=== PATIENT | female | born 1990 | race Hispanic/Latino ===

== ENCOUNTER 2019-08-15 00:27 | Inpatient (IN) | payer MEDICAID ==
[2019-08-15] MEDS ORDERED: FAMOTIDINE 20 MG/2 ML INJ IV ONE ×2 (01:17→01:26)
[2019-08-15] MEDS ORDERED: METOCLOPRAMIDE 10 MG/2 ML INJ IV ONE (01:17)
[2019-08-15] MEDS ORDERED: BICITRA ORAL LIQD 30ML PO ONE (01:17)
[2019-08-15] MEDS ORDERED: METOCLOPRAMIDE 10 MG/2 ML INJ ONE (01:25)
[2019-08-15] MEDS ORDERED: BICITRA ORAL LIQD 30ML ONE (01:25)
[2019-08-15] MEDS ORDERED: ceFAZolin/Water 2 GM/20 ML 2 GM/20 ML SYRINGE IV ONE (01:26)
[2019-08-15 01:53] LABS: Basophils # (Auto) 0.1 K/mm3 (0.0-0.1); Basophils % (Auto) 0.6 % (0.0-1.8); Eosinophils # (Auto) 0.1 K/mm3 (0.0-0.4); Eosinophils % (Auto) 0.6 % (0.0-4.3); Hematocrit 38.6 % (30.3-42.9); Hemoglobin 13.1 gm/dl (10.1-14.3); Lymphocytes # (Auto) 2.7 K/mm3 (1.2-5.4); Lymphocytes % (Auto) 17.3 % (13.4-35.0); Mean Corpuscular HGB Conc 34 % (30-34); Mean Corpuscular Volume 95 fl (79-97); Monocytes # (Auto) 1.3 K/mm3 (0.0-0.8); Monocytes % (Auto) 8.5 % (0.0-7.3); Red Blood Count 4.07 M/mm3 (3.65-5.03); Red Cell Distribution Width 13.4 % (13.2-15.2)
[2019-08-15] MEDS ORDERED: LACTATED RINGERS 1,000 ML IV SCH (02:00)
[2019-08-15] MEDS ORDERED: OXYTOCIN 20 UNIT/1000ML DRIP 20 UNITS/1,000 ML BAG IV SCH ×2 (02:00→04:00)
[2019-08-15] MEDS ORDERED: ceFAZolin/Water 2 GM/20 ML 2 GM/20 ML SYRINGE IV NR (02:00)
--- NOTE | 2019-08-15 02:03 | Anesthesia Day of Surgery ---
Anesthesia Day of Surgery - Day of Surgery Patient Examined: Yes Patient H&P Reviewed: Yes Patient is NPO: Yes
--- NOTE | 2019-08-15 02:03 | Anesthesia Consultation ---
Anesthesia Consult and Med Hx Date of service: 08/15/19 - Airway Anesthetic Teeth Evaluation: Good ROM Head & Neck: Adequate Mental/Hyoid Distance: Adequate Mallampati Class: Class II Intubation Access Assessment: Probably Good - Pulmonary Exam CTA: Yes - Cardiac Exam Cardiac Exam: RRR - Pre-Operative Health Status ASA Pre-Surgery Classification: ASA2 Proposed Anesthetic Plan: Epidural - Pulmonary Hx Smoking: Yes Hx Asthma: No COPD: No Hx Pneumonia: No - Cardiovascular System Hx Hypertension: No - Central Nervous System Hx Seizures: No Hx Psychiatric Problems: No - Endocrine Hx Renal Disease: No Hx End Stage Renal Disease: No Hx Hypothyroidism: No Hx Hyperthyroidism: No - Hematic Hx Anemia: No Hx Sickle Cell Disease: No - Other Systems Hx Alcohol Use: No
--- NOTE | 2019-08-15 02:04 | History and Physical Report ---
History of Present Illness Date of examination: 08/15/19 Date of admission: 08/15/19 00:27 Chief complaint: SROM, hx of previous csec for breech History of present illness: This is a 28 yo at 39 weeks here for repeat . CADE 08/22/19. SHe is a hx of smoker. She also has placenta lakes with GBS in urine. Patient reports while going to bed she had leaking with grossly ruptured Past History Past Medical History: no pertinent history Past Surgical History: section (for breech ), other (breast augmetnation) Family/Genetic History: none Social history: , smoking. denies: alcohol abuse, prescription drug abuse - Obstetrical History Expected Date of Delivery: 08/22/19 Actual Gestation: 39 Week(s) 0 Day(s) : 2 Para: 1 Hx # Term Pregnancies: 1 Number of Pregnancies: 0 Spontaneous Abortions: 0 Induced : 0 Number of Living Children: 1 Medications and Allergies Allergies Allergy/AdvReac Type Severity Reaction Status Date / Time No Known Allergies Allergy Verified 08/15/19 01:22 Active Meds: Active Medications Oxytocin/Sodium Chloride (Pitocin/Ns 20 Unit/1000ml Drip) 20 units in 1,000 mls @ 0 mls/hr IV TITR BENJY Lactated Ringer's (Lactated Ringers) 1,000 mls @ 2,250 mls/hr IV PREOP BENJY Stop: 08/16/19 02:27 Cefazolin Sodium (Ancef/Sterile Water 2 Gm/20 Ml) 2 gm in 20 mls @ 80 mls/hr IV PREOP NR; Protocol Stop: 08/15/19 02:14 Last Admin: 08/15/19 01:48 Dose: 80 mls/hr Documented by: Review of Systems All systems: negative Genitourinary: leakage of fluid - Vital Signs Vital signs: Vital Signs Pulse BP 88 115/63 08/15/19 01:00 08/15/19 01:00 Temp Pulse Resp BP Pulse Ox 88 115/63 08/15/19 01:00 08/15/19 01:00 - Physical Exam Breasts: Positive: normal Cardiovascular: Regular rate, Normal S1 Lungs: Positive: Clear to auscultation, Normal air movement Abdomen: Positive: normal appearance, soft, normal bowel sounds. Negative: distention, tenderness, guarding Genitourinary (Female): Positive: normal external genitalia, normal perenium Vulva: both: normal Vagina: Positive: normal moisture Uterus: Positive: normal size Anus/Rectum: Positive: normal perianal skin Deep Tendon Reflex Grade: Normal +2 - Obstetrical FHR: category 1 Cervical Dilatation: 1 Uterine Contraction Pattern: Irregular Uterine Tone Measurement Phase: Resting Results Result Diagrams: 08/15/19 01:40 Abnormal lab results 08/15/19 Range/Units 01:40 WBC 15.7 H (4.5-11.0) K/mm3 [place] % (Auto) 8.5 H (0.0-7.3) % [place] # 1.3 H (0.0-0.8) K/mm3 Seg Neutrophils % 73.0 H (40.0-70.0) % Seg Neutrophils # 11.5 H (1.8-7.7) K/mm3 All other labs normal. Assessment and Plan A/P IUP 39 weeks GBS + Previous Desires repeat discussed r/b/a which include bleeding infection damage to pelvic and non pelvic organs risk of and hysterectomy proceed with repeat csec all questions answered
[2019-08-15] MEDS ORDERED: WATER FOR IRRIG STERILE 1,500 ML BOTTLE IR ONE (02:20)
[2019-08-15] MEDS ORDERED: SODIUM CHLORIDE 0.9% IRR 1,500 ML BOTTLE IR ONE (02:20)
[2019-08-15] MEDS ORDERED: ceFAZolin/STERILE WATER 2 GM/20 ML SYRINGE IV ONE (02:30)
[2019-08-15 02:49] LABS: Platelet Count 195 K/mm3 (140-440)
[2019-08-15] MEDS ORDERED: ONDANSETRON 4 MG/2 ML INJ ONE (02:56)
[2019-08-15] MEDS ORDERED: OXYTOCIN 10 UNIT/1 ML INJ ONE (02:56)
[2019-08-15] MEDS ORDERED: KETOROLAC 30 MG/1 ML INJ ONE (02:56)
[2019-08-15] MEDS ORDERED: DEXMEDETOMIDINE 200 MCG/2 ML VIAL IV ONE (02:56)
[2019-08-15] MEDS ORDERED: BUPIVACAINE/PF (0.5%) 5 MG/1 ML 30 ML VIAL INFILTRATI ONE (02:56)
[2019-08-15] MEDS ORDERED: PHENYLEPHRINE/NS 1,000 MCG/10 ML SYRINGE (OR USE) IV ONE (02:59)
--- NOTE | 2019-08-15 03:19 | Procedure Note ---
OB Delivery Note - Delivery Date of Delivery: 08/15/19 Surgeon: ALISON VELOZ Estimated blood loss: 300cc - Section Preop diagnosis: repeat Postop diagnosis: same section procedure: section Disposition: PACU Complications: none Narrative: see op note - Infant A at 1 minute: 8 at 5 minutes: 9 Gender: Male (6 pounds 8 oz)
[2019-08-15] MEDS ORDERED: MORPHINE 4 MG/1 ML INJ IV PRN (03:22)
[2019-08-15] MEDS ORDERED: MAGNESIUM HYDROXIDE (MOM) ORAL LIQD UDC PO PRN (03:22)
[2019-08-15] MEDS ORDERED: PROMETHAZINE 25 MG RECT SUPP PR PRN (03:22)
[2019-08-15] MEDS ORDERED: SIMETHICONE 80 MG CHEW TAB PO PRN (03:22)
[2019-08-15] MEDS ORDERED: MORPHINE 2 MG/1 ML INJ IV PRN (03:22)
[2019-08-15] MEDS ORDERED: LANOLIN/ZINC/DIMETHICONE (LANSINOH) 7 GM TP PRN (03:22)
[2019-08-15] MEDS ORDERED: ONDANSETRON 4 MG/2 ML INJ IV PRN (03:22)
[2019-08-15] MEDS ORDERED: HYDROcodone/ACETAMINOPHEN 5-325 MG TAB PO PRN (03:22)
[2019-08-15] MEDS ORDERED: SENNOSIDES 8.6 MG TAB PO PRN (03:22)
[2019-08-15] MEDS ORDERED: KETOROLAC 30 MG/1 ML INJ IV PRN ×2 (03:22)
[2019-08-15] MEDS ORDERED: ACETAMINOPHEN 325 MG TAB PO PRN (03:22)
[2019-08-15] MEDS ORDERED: NALOXONE 0.4 MG/1 ML INJ IV PRN (03:22)
[2019-08-15] MEDS ORDERED: WITCH HAZEL/ GLYCERIN PAD TP PRN (03:22)
--- NOTE | 2019-08-15 03:22 | Operative Report ---
Operative Report Operative Report: DATE OF OPERATION: 08/15/19 PREOPERATIVE DIAGNOSES: 1. Prior section. 2. Declines vaginal after . 3. A 39 weeks gestation. POSTOPERATIVE DIAGNOSES: 1. Prior section. 2. Declines vaginal after . 3. A 39 weeks gestation. OPERATION PERFORMED: Repeat low transverse . SURGEON: Racquel Baez MD ANESTHESIA: Spinal. ESTIMATED BLOOD LOSS: 300 mL. FINDINGS: A viable male weighing 2961 grams with Apgars of 8 and 9. COMPLICATIONS: None. DISPOSITION: Stable. DESCRIPTION OF OPERATION: After informed consent was obtained, the patient was brought back to the operative suite where adequate spinal anesthesia was ob tained. The patient was then placed in the dorsal supine position and prepped and draped in the sterile fashion. A repeat Pfannenstiel skin incision was made with a blade and carried down through the subcutaneous tissues to the fascia, which was extended in the transverse fascia with Mi scissors. The fascial incision was then dissected off the rectus muscles both bluntly and sharply. The rectus muscle was in the midline. The peritoneum was entered bluntly. The peritoneal incision was then extended both superiorly and inferiorly with good visualization of the underlying bowel and bladder. The bladder blade was placed, and the vesicouterine fascia was incised to create a bladder flap in a low transverse position. This was developed digitally. A low transverse uterine incision was made with the blade and carried down through the layers of the uterus until membranes bulged through the incision. The uterine incision was then extended digitally. Hand was placed inside the pelvis, and the head was brought up out of the pelvis and delivered atraumatically with gentle fundal pressure. Prior to the head being delivered, actually through the skin, the sound of the baby starting to cry was noted. After the head was delivered, the mouth and nares were aggressively bulb suctioned. Remainder of the infant was delivered, and the was passed to the awaiting nursing staff for additional care. Cord was doubly clamped and cut and cord blood was obtained. The placenta was then manually extracted, and the uterus was exteriorized. The uterus was cleaned of remaining clot. The uterine incision was readily identified and closed in two layers, first one with running locking followed by second imbricating layer of 0 Vicryl. The vesicouterine fascia was then reapproximated with 2-0 Vicryl. The adnexa were within normal limits. The uterus was placed back inside the pelvis. Copious irrigation and inspection of the incision was satisfactory. The fascia was closed with 0 PDS from one angle to the next. Subcutaneous tissues were copiously irrigated, and final bleeders were cauterized. The incision was then reapproximated with dereje needle in a standard fashion
[2019-08-15] MEDS ORDERED: NalbUPHINE 10 MG/1 ML INJ IV PRN (03:31)
--- NOTE | 2019-08-15 03:31 | Post Anesthesia Evaluation ---
- Post Anesthesia Evaluation Patient Participated: Yes Airway Patent: Yes Stable Respiratory Function: Yes Nausea/Vomiting: No Temp > 96.8F: Yes Pain Manageable: Yes Adequeate Hydration: Yes Anesthesia Complications: No Block Receding Appropriately: Yes
[2019-08-15] MEDS ORDERED: D5W/LACTATED RINGERS 1,000 ML IV SCH (04:00)
[2019-08-15] MEDS: KETOROLAC 30 MG/1 ML INJ IV SCH ×3 (07:24→23:10)
[2019-08-15] MEDS: FERROUS SULFATE 325 MG TAB PO SCH (10:33)
[2019-08-15] MEDS: ACETAMINOPHEN 325 MG TAB PO SCH ×3 (11:37→23:08)
[2019-08-15 19:24] LABS: Hematocrit 35.7 % (30.3-42.9)
[2019-08-15] MEDS: oxyCODONE /ACETAMINOPHEN 5-325MG TAB PO PRN (20:15)
[2019-08-16] MEDS ORDERED: MEASLES, MUMPS & RUBELLA 12,500 UNIT/0.5 ML VACCINE SUB-Q ONE (03:23)
[2019-08-16] MEDS: oxyCODONE /ACETAMINOPHEN 5-325MG TAB PO PRN ×3 (03:56→18:42)
[2019-08-16] MEDS: ACETAMINOPHEN 325 MG TAB PO SCH ×4 (05:37→18:53)
[2019-08-16] MEDS: IBUPROFEN 800 MG TAB PO PRN ×2 (05:38→15:35)
[2019-08-16] MEDS ORDERED: TETANUS,DIPH,PERTUSS(ACELL) VACCINE 0.5 ML SYRINGE IM ONE (06:00)
--- NOTE | 2019-08-16 08:48 | Progress Note ---
Assessment and Plan - Patient Problems (1) delivery delivered Current Visit: Yes Status: Acute Plan to address problem: routine postop care Subjective - Subjective Date of service: 08/16/19 Interval history: Patient has been ambulating and voiding. Tolerated a soft diet without difficulty Patient reports: appetite normal, voiding normally, pain well controlled [place]: doing well Objective - Vital Signs Latest vital signs: Vital Signs Temp Pulse Resp BP Pulse Ox 08/16/19 00:48 98.0 F 87 18 122/80 95 08/15/19 20:20 97.6 F 99 H 18 130/83 97 08/15/19 16:33 98.0 F 90 20 109/68 94 08/15/19 11:56 98.1 F 89 20 105/46 97 Intake and Output 08/15/19 08/16/19 08/16/19 22:59 06:59 14:59 Intake Total 240 480 Output Total 500 Balance -260 480 Intake: Oral 240 480 Output: Urine 500 Void 500 Other: Total, Intake Amount 240 240 Total, Output Amount 300 Voiding Method Toilet # Voids Indwelling Catheter 0 Void 1 1 - Exam Abdomen: Present: normal appearance, soft Incision: Present: dressed
[2019-08-16] MEDS: FERROUS SULFATE 325 MG TAB PO SCH (09:37)
[2019-08-17] MEDS: IBUPROFEN 800 MG TAB PO PRN ×2 (00:04→07:37)
[2019-08-17] MEDS: oxyCODONE /ACETAMINOPHEN 5-325MG TAB PO PRN ×2 (04:31→10:08)
--- NOTE | 2019-08-17 08:33 | Progress Note ---
Assessment and Plan POD2 s/p repeat c/s VSS, labs stable Discharge to home today Subjective - Subjective Date of service: 08/17/19 Principal diagnosis: s/p repeat c/s Interval history: POD2 s/p repeat c/s Patient reports: appetite normal, voiding normally, pain well controlled, flatus, ambulating normally [place]: doing well, bottle feeding (pumped milk from bottle) Objective - Vital Signs Latest vital signs: Vital Signs Temp Pulse Resp BP BP Pulse Ox 08/17/19 04:31 18 08/17/19 00:04 18 08/16/19 23:15 98.6 F 92 H 18 118/71 98 08/16/19 16:45 97.9 F 95 H 18 112/67 08/16/19 08:54 97.8 F 91 H 18 127/75 Intake and Output 08/16/19 08/17/19 08/17/19 23:59 07:59 15:59 Intake Total 480 600 Balance 480 600 Intake: Oral 480 Intake, Free Water 600 Other: Total, Intake Amount 480 Voiding Method Toilet # Voids Void 1 - Exam Lungs: Present: Normal air movement Abdomen: Present: soft Uterus: Present: firm, fundal height below umbilicus Extremities: Present: normal Incision: Present: normal, dry, intact
--- NOTE | 2019-08-17 08:35 | Discharge Summary ---
Providers - Providers Date of Admission: 08/15/19 00:27 Date of discharge: 08/17/19 Attending physician: LAISON VELOZ MD Primary care physician: ALISON VELOZ MD Hospitalization Reason for admission: section Delivery: Procedure: repeat low transverse Incision: normal, dry, intact Other procedures: none complications: none Discharge diagnosis: IUP at term delivered [place] baby: male Hospital course: Pt presented for repeat c/s. course uncomplicated. Condition at discharge: Good Disposition: DC-01 TO HOME OR SELFCARE Plan - Discharge Medications Prescriptions: Ferrous Sulfate [Feosol 325 MG tab] 325 mg PO BID #30 tablet Ibuprofen [Motrin] 600 mg PO Q8H PRN #30 tablet PRN Reason: Pain oxyCODONE /ACETAMINOPHEN [Percocet 5/325] 1 tab PO Q6HR PRN #30 tablet PRN Reason: Pain - Provider Discharge Summary Activity: routine, no sex for 6 weeks, no heavy lifting 4 weeks, no strenuous exercise Diet: routine Instructions: routine Additional instructions: [] Smoking cessation referral if applicable(refer to patient education folder for contact #) [] Refer to [facility] Book[facility] Call your doctor immediately for: * Fever > 100.5 * Heavy vaginal bleeding ( >1 pad per hour) * Severe persistent headache * Shortness of breath * Reddened, hot, painful area to leg or breast * Drainage or odor from incision. * Keep incision clean and dry at all times and follow doctor's instructions regarding bathing/showering - Follow up plan Follow up: PB HAGER CNM [Advanced Practice Nurse] - 14 Days (Please call [facility] lifting supervisor to schedule appointment.)
[2019-08-17 08:56] VITALS: BP 104/77
[2019-08-17] MEDS: FERROUS SULFATE 325 MG TAB PO SCH (09:56)
== END 2019-08-17 14:30 | disposition home or self-care (01) | DRG 766 ==
LOC: APU 00:27 → OB 04:38
PROVIDERS: ADMIT Obstetrics & Gynecology; ATTEND Obstetrics & Gynecology
PROC: 10D00Z1 Extraction of Products of Conception, Low, Open Approach (ICD-10-PCS; principal; 2019-08-15)
DX: O34.211 Maternal care for low transverse scar from previous cesarean delivery (principal); Z3A.39 39 weeks gestation of pregnancy; Z37.0 Single live birth; O99.824 Streptococcus B carrier state complicating childbirth
CPT/HCPCS: 36415; 85014; 85018; 85025; 86850; 86900; 86901; 88305; 88307; G0378; J0690; J1885; J2270; J2370; J2405; J2590; J2765; J3490; J7121

== ENCOUNTER 2020-07-21 13:22 | Day surgery (SDC) | payer MEDICAID ==
--- NOTE | 2020-07-21 13:39 | Event Note ---
ED Screening Note Date of service: 07/21/20 Time: 13:37 ED Screening Note: 29-year-old female presents to the emergency room complaining of a boil between her legs x1 month. This initial assessment/diagnostic orders/clinical plan/treatment(s) is/are subject to change based on patients health status, clinical progression and re- assessment by fellow clinical providers in the ED. Further treatment and workup at subsequent clinical providers discretion. Patient/guardian urged not to elope from the ED as their condition may be serious if not clinically assessed and managed. Initial orders include:
[2020-07-21 14:42] LABS: Basophils % (Auto) 0.3 % (0.0-1.8); Eosinophils % (Auto) 0.1 % (0.0-4.3); Hematocrit 44.3 % (30.3-42.9); Hemoglobin 14.9 gm/dl (10.1-14.3); Lymphocytes # (Auto) 1.9 K/mm3 (1.2-5.4); Lymphocytes % (Auto) 14.9 % (13.4-35.0); Mean Corpuscular HGB Conc 34 % (30-34); Mean Corpuscular Volume 92 fl (79-97); Monocytes # (Auto) 1.3 K/mm3 (0.0-0.8); Monocytes % (Auto) 9.8 % (0.0-7.3); Platelet Count 206 K/mm3 (140-440); Red Cell Distribution Width 12.6 % (13.2-15.2)
[2020-07-21 14:54] LABS: Alanine Aminotransferase 11 units/L (7-56); Albumin 4.4 g/dL (3.9-5); Blood Urea Nitrogen 9 mg/dL (7-17); Calcium 9.8 mg/dL (8.4-10.2); Hemolysis Index 2
[2020-07-21 14:55] LABS: BUN/Creatinine Ratio 13
[2020-07-21] MEDS ORDERED: traMADol 50 MG TAB PO ONE (15:30)
--- NOTE | 2020-07-21 15:54 | Emergency Department Report ---
- General Chief complaint: Skin/Abscess/Foreign Body Stated complaint: ABCESS/INFECTION UNDER SKIN Time Seen by Provider: 07/21/20 15:14 Source: patient Mode of arrival: Ambulatory Limitations: No Limitations - History of Present Illness Initial comments: 29-year-old female presents to the emergency room complaining of left buttocks pain x1 month. She denies any falls or known injuries or any insect bite. She denies any past medical history. She has been using akgx-lhn-hmeynct medicine and also warm soaks with no relief. She denies fever nausea vomiting. Patient appears uncomfortable states she is unable to sit on her buttocks due to the pain MD complaint: abscess/boil -: month(s) Location: buttocks (Left) Quality: aching, sharp, constant Consistency: constant Improves with: none Worsens with: none Context: none Associated symptoms: denies other symptoms Treatments Prior to Arrival: none - Related Data Previous Rx's Medication Instructions Recorded Last Taken Type Ferrous Sulfate [Feosol 325 MG tab] 325 mg PO BID #30 tablet 08/15/19 Unknown Rx Ibuprofen [Motrin] 600 mg PO Q8H PRN #30 tablet 08/15/19 Unknown Rx oxyCODONE /ACETAMINOPHEN [Percocet 1 tab PO Q6HR PRN #30 tablet 08/15/19 Unknown Rx 5/325] oxyCODONE /ACETAMINOPHEN [Percocet 1 tab PO Q6HR PRN #30 tablet 08/17/19 Unknown Rx 5/325] Allergies Allergy/AdvReac Type Severity Reaction Status Date / Time No Known Allergies Allergy Verified 08/15/19 01:22 Abscess Boil HPI - HPI Chief Complaint: Skin/Abscess/Foreign Body Stated Complaint: ABCESS/INFECTION UNDER SKIN Time Seen by Provider: 07/21/20 15:14 Duration: >1 Week Location: Other (Left buttocks) History: Yes Pain, No Fever, No Purulent Drainage, No Numbness, No Foreign Body, No Previous History, No Insect Bite HPI: 29-year-old female presents to the emergency room and no past medical history she complains of left buttocks pain that worsens for over a month now not relieved with cnpz-[id number]-[id number] medications or warm compress Home Medications: Previous Rx's Medication Instructions Recorded Last Taken Type Ferrous Sulfate [Feosol 325 MG tab] 325 mg PO BID #30 tablet 08/15/19 Unknown Rx Ibuprofen [Motrin] 600 mg PO Q8H PRN #30 tablet 08/15/19 Unknown Rx oxyCODONE /ACETAMINOPHEN [Percocet 1 tab PO Q6HR PRN #30 tablet 08/15/19 Unknown Rx 5/325] oxyCODONE /ACETAMINOPHEN [Percocet 1 tab PO Q6HR PRN #30 tablet 08/17/19 Unknown Rx 5/325] Allergies/Adverse Reactions: Allergies Allergy/AdvReac Type Severity Reaction Status Date / Time No Known Allergies Allergy Verified 08/15/19 01:22 ED Review of Systems ROS: Stated complaint: ABCESS/INFECTION UNDER SKIN Other details as noted in HPI Comment: All other systems reviewed and negative Constitutional: no symptoms reported Eyes: as per HPI Respiratory: no symptoms reported Cardiovascular: as per HPI. denies: chest pain, palpitations, dyspnea on exertion Endocrine: no symptoms reported Gastrointestinal: denies: abdominal pain, constipation Genitourinary: as per HPI. denies: dysuria, hematuria, discharge Skin: other (Left buttock swollen tender erythemic) Neurological: denies: headache, numbness, paresthesias, confusion Psychiatric: denies: anxiety Hematological/Lymphatic: denies: easy bleeding ED Past Medical Hx - Past Medical History Previous Medical History?: Yes Hx Hypertension: No Hx Congestive Heart Failure: No Hx Diabetes: No Hx Deep Vein Thrombosis: No Hx Renal Disease: No Hx Sickle Cell Disease: No Hx Seizures: No Hx Asthma: No Hx COPD: No Hx HIV: No Additional medical history: childbirth x 2 - Surgical History Past Surgical History?: Yes Hx Breast Surgery: Yes (Breast Augmentation) Additional Surgical History: x 2 - Social History Smoking Status: Current Every Day Smoker Substance Use Type: Alcohol - Medications Home Medications: Home Medications Medication Instructions Recorded Confirmed Last Taken Type Ferrous Sulfate [Feosol 325 MG tab] 325 mg PO BID #30 tablet 08/15/19 Unknown Rx Ibuprofen [Motrin] 600 mg PO Q8H PRN #30 tablet 08/15/19 Unknown Rx oxyCODONE /ACETAMINOPHEN [Percocet 1 tab PO Q6HR PRN #30 tablet 08/15/19 Unknown Rx 5/325] oxyCODONE /ACETAMINOPHEN [Percocet 1 tab PO Q6HR PRN #30 tablet 08/17/19 Unknown Rx 5/325] ED Physical Exam - General Limitations: No Limitations General appearance: alert, in no apparent distress - Head Head exam: Present: atraumatic - Eye Eye exam: Present: normal appearance - ENT ENT exam: Present: normal exam, mucous membranes moist - Neck Neck exam: Present: normal inspection - Respiratory Respiratory exam: Present: normal lung sounds bilaterally - Cardiovascular Cardiovascular Exam: Present: regular rate - GI/Abdominal GI/Abdominal exam: Present: soft - Extremities Exam Extremities exam: Present: normal inspection - Back Exam Back exam: Present: normal inspection - Neurological Exam Neurological exam: Present: alert, oriented X3 - Skin Skin exam: Present: other - Expanded Skin Exam Expanded 1 - 19 x 7 cm fluctuant tender erythremic ED Course Vital Signs 07/21/20 13:38 Temperature 98.7 F Pulse Rate 138 H Respiratory 20 Rate Blood Pressure 151/91 O2 Sat by Pulse 98 Oximetry - Reevaluation(s) Reevaluation #1: 07/21/20 15:59 I discussed patient's condition with Dr. Sanford surgeon patient is to be admitted by hospitalist n.p.o. after midnight plan for 6 surgery at 10 AM Reevaluation #2: 07/21/20 16:01 Patient notified of plan of care to be a she is to be admitted to the hospital overnight she is aware not to eat or drink anything after midnight and she will have a surgical procedure to drain the abscess at 10 AM tomorrow patient agrees with the plan. She is in no acute distress Reevaluation #3: 07/21/20 16:[address] Garza notified of admission. He will see patient shortly Reevaluation #4: 07/21/20 17:02 Patient now states that she cannot stay in the hospital overnight due to childcare issues. I discussed with Dr. Sanford surgeon patient can be discharged home but to return to the ER tomorrow morning at 7 AM she is to remain n.p.o. after midnight ED Medical Decision Making - Lab Data Result diagrams: 07/21/20 13:41 07/21/20 13:41 Critical Care Time: No Critical care attestation.: If time is entered above; I have spent that time in minutes in the direct care of this critically ill patient, excluding procedure time. ED Disposition Clinical Impression: Left buttock abscess Disposition: DC- TO HOME OR SELFCARE Is pt being admited?: No Does the pt Need Aspirin: No Condition: Stable Instructions: Skin Abscess Additional Instructions: You are not to eat or drink anything after midnight. You are to return to the emergency room at [address] time [address] Sanford will be contacted and you will get further instructions about your surgical procedure Referrals: PRIMARY CARE, [Primary Care Provider] - 3-5 Days Time of Disposition: 17:13
[2020-07-21] MEDS ORDERED: PIPERACILLIN/TAZOBACTAM 3.375 3.375 GM/50 ML BAG IV ONE (16:03)
--- NOTE | 2020-07-22 12:09 | Anesthesia Consultation ---
Anesthesia Consult and Med Hx Date of service: 07/22/20 - Pre-Operative Health Status ASA Pre-Surgery Classification: ASA2, Emergency Proposed Anesthetic Plan: General - Pulmonary Hx Smoking: Yes (daily 0.5 pack/day ) Hx Asthma: No Hx Respiratory Symptoms: No SOB: No COPD: No Home Oxygen Therapy: No Hx Pneumonia: No Hx Sleep Apnea: No - Cardiovascular System Hx Hypertension: No Hx Coronary Artery Disease: No Hx Heart Attack/AMI: No Hx Angina: No Hx Percutaneous Transluminal Coronary Angioplasty (PTCA): No Hx Cardia Arrhythmia: No Hx Pacemaker: No Hx Internal Defibrillator: No Hx Valvular Heart Disease: No Hx Heart Murmur: No Hx Peripheral Vascular Disease: No - Central Nervous System Hx Neuromuscular Disorder: No Hx Seizures: No CVA: No Hx Back Pain: No Hx Psychiatric Problems: No - Gastrointestinal Hx Ulcer: No Hx Gastroesophageal Reflux Disease: No - Endocrine Hx Renal Disease: No Hx End Stage Renal Disease: No Hx Cirrhosis: No Hx Liver Disease: No Hx Insulin Dependent Diabetes: No Hx Non-Insulin Dependent Diabetes: No Hx Thyroid Disease: No Hx Hypothyroidism: No Hx Hyperthyroidism: No - Hematic Hx Anemia: No Hx Sickle Cell Disease: No - Other Systems Hx Alcohol Use: Yes (social drinker ) Hx Substance Use: No Hx Cancer: No Hx Obesity: No - Additional Comments Anesthesia Medical History Comments: no issues with previous anesthesia
--- NOTE | 2020-07-22 12:13 | Anesthesia Day of Surgery ---
Anesthesia Day of Surgery - Day of Surgery Patient Examined: Yes Patient H&P Reviewed: Yes Patient is NPO: Yes (NPO before midnight)
[2020-07-22] MEDS ORDERED: ONDANSETRON 4 MG/2 ML INJ IV PRN (13:20)
[2020-07-22] MEDS ORDERED: fentaNYL 100 MCG/2 ML INJ IV PRN (13:20)
--- NOTE | 2020-07-22 13:23 | Post Anesthesia Evaluation ---
- Post Anesthesia Evaluation Patient Participated: Yes Airway Patent: Yes Stable Respiratory Function: Yes Nausea/Vomiting: No Temp > 96.8F: Yes Pain Manageable: Yes Adequeate Hydration: Yes Anesthesia Complications: No Block Receding Appropriately: Not Applicable Patient on Ventilator: No
[2020-07-22] MEDS ORDERED: BUPIVACAINE-EPINEPHRINE/PF 0.5%-1:200,000 (30 ML) VIAL INFILTRATI ONE (13:28)
[2020-07-22] MEDS ORDERED: SODIUM CHLORIDE 0.9% IRR 1,500 ML BOTTLE IR ONE (13:28)
[2020-07-22] MEDS ORDERED: oxyCODONE /ACETAMINOPHEN 5-325MG TAB PO ONE (13:31)
[2020-07-22 14:16] VITALS: BP 118/78
== END 2020-07-22 14:05 | disposition home or self-care (01) ==
LOC: ED 13:22 → OR 13:22 → ED 17:30 → OR 07-22 08:30
PROVIDERS: ATTEND Emergency Medicine
DX: L02.31 Cutaneous abscess of buttock (principal); F17.200 Nicotine dependence, unspecified, uncomplicated; Z98.890 Other specified postprocedural states; Z79.899 Other long term (current) drug therapy
CPT/HCPCS: 36415; 80053; 82140; 84702; 85025; 87075; 87076; 87116; 87186; J2543

== ENCOUNTER 2020-07-22 07:12 | Day surgery (SDC) | payer MEDICAID ==
[2020-07-22 08:03] VITALS: BP 105/73
[2020-07-22] MEDS ORDERED: SODIUM CHLORIDE 0.9% 1000 ML 1,000 ML IV ONE (09:41)
[2020-07-22] MEDS ORDERED: PIPERACIL/TAZOBACTA 4.5/NS 100 4.5 GM/100 ML VIAL IV ONE (09:42)
--- NOTE | 2020-07-22 09:58 | Emergency Department Report ---
Abscess Boil HPI - HPI Chief Complaint: Skin/Abscess/Foreign Body Stated Complaint: ABSCESS Time Seen by Provider: 07/22/20 09:36 Location: Other (left buttock) History: Yes Pain, No Fever, No Purulent Drainage, No Numbness, No Foreign Body, No Previous History, No Insect Bite HPI: This is a 29-year-old female nontoxic, well nourished in appearance, no acute signs of distress presents to the ED with c/o of redness and pain and swelling to left buttock. Patient was seen yesterday and was instructed to return this morning at 7 AM for surgical procedure with Dr Sanford. Patient denies any pus or drainage. Patient denies any fever, chills, nausea, vomiting, chest pain, shortness of breath, headache or stiff neck. Patient denies any allergies or significant past medical history. Home Medications: Previous Rx's Medication Instructions Recorded Last Taken Type Ferrous Sulfate [Feosol 325 MG tab] 325 mg PO BID #30 tablet 08/15/19 Unknown Rx Ibuprofen [Motrin] 600 mg PO Q8H PRN #30 tablet 08/15/19 Unknown Rx oxyCODONE /ACETAMINOPHEN [Percocet 1 tab PO Q6HR PRN #30 tablet 08/15/19 Unknown Rx 5/325] oxyCODONE /ACETAMINOPHEN [Percocet 1 tab PO Q6HR PRN #30 tablet 08/17/19 Unknown Rx 5/325] Allergies/Adverse Reactions: Allergies Allergy/AdvReac Type Severity Reaction Status Date / Time No Known Allergies Allergy Verified 08/15/19 01:22 ED Review of Systems ROS: Stated complaint: ABSCESS Other details as noted in HPI Constitutional: denies: chills, fever Eyes: denies: eye pain, eye discharge, vision change ENT: denies: ear pain, throat pain Respiratory: denies: cough, shortness of breath, wheezing Cardiovascular: denies: chest pain, palpitations Endocrine: no symptoms reported Gastrointestinal: denies: abdominal pain, nausea, diarrhea Genitourinary: denies: urgency, dysuria, discharge Musculoskeletal: denies: back pain, joint swelling, arthralgia Skin: denies: rash, lesions Neurological: denies: headache, weakness, paresthesias Psychiatric: denies: anxiety, depression Hematological/Lymphatic: denies: easy bleeding, easy bruising ED Past Medical Hx - Past Medical History Previous Medical History?: Yes Hx Hypertension: No Hx Congestive Heart Failure: No Hx Diabetes: No Hx Deep Vein Thrombosis: No Hx Renal Disease: No Hx Sickle Cell Disease: No Hx Seizures: No Hx Asthma: No Hx COPD: No Hx HIV: No Additional medical history: childbirth x 2, Boils - Surgical History Past Surgical History?: Yes Hx Breast Surgery: Yes (Breast Augmentation) Additional Surgical History: x 2 - Social History Smoking Status: Current Every Day Smoker Substance Use Type: Alcohol - Medications Home Medications: Home Medications Medication Instructions Recorded Confirmed Last Taken Type Ferrous Sulfate [Feosol 325 MG tab] 325 mg PO BID #30 tablet 08/15/19 Unknown Rx Ibuprofen [Motrin] 600 mg PO Q8H PRN #30 tablet 08/15/19 Unknown Rx oxyCODONE /ACETAMINOPHEN [Percocet 1 tab PO Q6HR PRN #30 tablet 08/15/19 Unknown Rx 5/325] oxyCODONE /ACETAMINOPHEN [Percocet 1 tab PO Q6HR PRN #30 tablet 08/17/19 Unknown Rx 5/325] ED Abscess Boil Physical Exam - Exam General: Vital signs noted. No distress. Alert and acting appropriately. Front/Back of Body, Lg (Color): 1 - 19 cm x 7 cm abscess Size: >5 cm Exam: Yes Tenderness, Yes Fluctuance, Yes Surrounding Cellulites/Erythema, Yes Normal Neurologic Exam, Yes Normal Circulation, No Lymphangitis, No Crepitation, No Heart Murmur ED Course Vital Signs 07/22/20 08:00 Temperature 98.2 F Pulse Rate 108 H Respiratory 20 Rate Blood Pressure 105/73 O2 Sat by Pulse 98 Oximetry - Reevaluation(s) Reevaluation #1: 07/22/20 09:57 Patient is speaking in full sentences with no signs of distress noted. - Consultations Consultation #1: 07/22/20 09:57 Patient has been consulted with Dr. Sanford (surgery) and patient to be admitted with hospitalist and will perform surgery this morning. Consultation #2: 07/22/20 10:03 Patient has been consulted with Dr. Carney about patient history and physical exam accepts patient to services. Critical care attestation.: If time is entered above; I have spent that time in minutes in the direct care of this critically ill patient, excluding procedure time. ED Medical Decision Making - Medical Decision Making 29-year-old female that presents with left buttock abscess. Patient is stable and was examined by me. Patient admitted with hospitalist for a procedure with Dr. Sanford. Patient placed on n.p.o. IV antibiotics initiated as per Dr. Sanford. At time of admission. the patient does not seem toxic or ill in appearance. No acute signs of distress noted. Patient agrees to admission treatment plan of care. No further questions noted by the patient. ED Disposition Clinical Impression: Left buttock abscess Disposition: OP ADMIT IP TO THIS HOSP Is pt being admited?: Yes Condition: Stable
[2020-07-22] MEDS ORDERED: ALUM-MAG HYDROXIDE-SIMETHICONE 200-200-20MG/5ML ORAL LIQD 30 ML PO PRN (10:03)
[2020-07-22] MEDS ORDERED: MORPHINE 2 MG/1 ML INJ IV PRN (10:03)
[2020-07-22] MEDS ORDERED: ALBUTEROL 2.5 MG/3 ML NEBU IH PRN (10:03)
[2020-07-22] MEDS ORDERED: ACETAMINOPHEN 325 MG TAB PO PRN (10:03)
[2020-07-22] MEDS ORDERED: DEXTROSE 50% IN WATER (25GM) 50 ML SYRINGE IV PRN (10:03)
[2020-07-22] MEDS ORDERED: ONDANSETRON 4 MG/2 ML INJ IV PRN (10:03)
[2020-07-22] MEDS ORDERED: oxyCODONE /ACETAMINOPHEN 5-325MG TAB PO PRN (10:10)
--- NOTE | 2020-07-22 10:21 | History and Physical Report ---
History of Present Illness Date of examination: 07/22/20 Date of admission: 07/22/20 Chief complaint: Buttock abscess History of present illness: Patient is a 29-year-old female with past medical history of 2 previous C- section presents to the emergency room complaining of left buttocks pain x1 month. She denies any falls or known injuries or any insect bite. She denies any past medical history. She has been using jodf-hgd-ptoanxs medicine and also warm soaks with no relief. She denies fever nausea vomiting. Patient appears uncomfortable states she is unable to sit on her buttocks due to the pain She initially was admitted in the hospital yesterday but had to leave due to childcare services. She returns today with complaint of the same and is planned for surgery and will be requested to admit the patient. Past History Past Medical History: other Past Surgical History: Social history: lives with family, full code. denies: smoking, alcohol abuse, prescription drug abuse, IV drug use Family history: no significant family history Medications and Allergies Allergies Allergy/AdvReac Type Severity Reaction Status Date / Time No Known Allergies Allergy Verified 08/15/19 01:22 Home Medications Medication Instructions Recorded Confirmed Last Taken Type Ferrous Sulfate [Feosol 325 MG tab] 325 mg PO BID #30 tablet 08/15/19 Unknown Rx Ibuprofen [Motrin] 600 mg PO Q8H PRN #30 tablet 08/15/19 Unknown Rx oxyCODONE /ACETAMINOPHEN [Percocet 1 tab PO Q6HR PRN #30 tablet 08/15/19 Unknown Rx 5/325] oxyCODONE /ACETAMINOPHEN [Percocet 1 tab PO Q6HR PRN #30 tablet 08/17/19 Unknown Rx 5/325] Active Meds: Active Medications Acetaminophen (Acetaminophen 325 Mg Tab) 650 mg PO Q4H PRN PRN Reason: Pain MILD(1-3)/Fever >100.5/STEPHENS Al Hydrox/Mg Hydrox/Simethicone (Alum-Mag Hydroxide-Simethicone [phone]/5ml Oral Liqd 30 Ml) 30 ml PO Q4H PRN PRN Reason: Indigestion Albuterol (Albuterol 2.5 Mg/3 Ml Nebu) 2.5 mg IH Q3H PRN PRN Reason: Shortness Of Breath Dextrose (Dextrose 50% In Water (25gm) 50 Ml Syringe) 50 ml IV Q30MIN PRN; Protocol PRN Reason: Hypoglycemia Ferrous Sulfate (Ferrous Sulfate 325 Mg Tab) 325 mg PO BID BENJY Sodium Chloride (Nacl 0.9% 1000 Ml) 1,000 mls @ 999 mls/hr IV BOLUS ONE Stop: 07/22/20 10:41 Last Admin: 07/22/20 09:53 Dose: 999 mls/hr Documented by: Morphine Sulfate (Morphine 2 Mg/1 Ml Inj) 2 mg IV Q4H PRN PRN Reason: Pain, Moderate (4-6) Ondansetron HCl (Ondansetron 4 Mg/2 Ml Inj) 4 mg IV Q8H PRN PRN Reason: Nausea And Vomiting Oxycodone/Acetaminophen (Oxycodone /Acetaminophen 5-325mg Tab) 1 tab PO Q6H PRN PRN Reason: MODERATE PAIN (4-7) Sodium Chloride (Sodium Chloride 0.9% 10 Ml Flush Syringe) 10 ml IV BID BENJY Sodium Chloride (Sodium Chloride 0.9% 10 Ml Flush Syringe) 10 ml IV PRN PRN PRN Reason: LINE FLUSH Review of Systems All systems: negative Integumentary: other (Abscess) Exam - Physical Exam Narrative exam: VITAL SIGNS: Reviewed. GENERAL: The patient appears normally developed, Vital signs as documented. HEAD: No signs of head trauma. EYES: Pupils are equal. Extraocular motions intact. EARS: Hearing grossly intact. MOUTH: Oropharynx is normal. NECK: No adenopathy, no JVD. CHEST: Chest with clear breath sounds bilaterally. No wheezes, rales, or rhonchi. CARDIAC: Regular rate and rhythm. S1 and S2, without murmurs, gallops, or rubs. VASCULAR: No Edema. Peripheral pulses normal and equal in all extremities. ABDOMEN: Soft, non tender and non distended. No rebound or guarding, and no masses palpated. Bowel Sounds normal. MUSCULOSKELETAL: Good range of motion of all major joints. Extremities without clubbing, cyanosis or edema. NEUROLOGIC EXAM: Alert and oriented x 3 No focal sensory or strength deficits. Speech normal. Follows commands. PSYCHIATRIC: Mood normal. SKIN: Dressing on the gluteal abscess area detail exam as documented in skin assessment - Constitutional Vitals: Temp Pulse Resp BP Pulse Ox 98.2 F 108 H 20 105/73 98 07/22/20 08:00 07/22/20 08:00 07/22/20 08:00 07/22/20 08:00 07/22/20 08:00 Results - Labs CBC & Chem 7: 07/22/20 09:42 07/22/20 09:42 Baez/IV: IV Catheter Type [Left INT / Saline Lock Antecubital] Assessment and Plan Assessment and plan: Patient is a 29-year-old female with past medical history of 2 previous C- section presents to the emergency room complaining of left buttocks pain x1 month. She denies any falls or known injuries or any insect bite. She denies any past medical history. She has been using slvy-woc-vyermmj medicine and also warm soaks with no relief. She denies fever nausea vomiting. Patient appears uncomfortable states she is unable to sit on her buttocks due to the pain She initially was admitted in the hospital yesterday but had to leave due to childcare services. She returns today with complaint of the same and is planned for surgery and will be requested to admit the patient Gluteal abscess SIRS secondary to gluteal abscess with no organ dysfunction Plan Admit to surgery Continue supportive care with fluids and antibiotics Surgeon and ID consult Keep n.p.o. until surgical evaluation. Disposition based on findings from the surgical team and cultures. Plan of care discussed with the patient and the ED team in detail Advance Directives: Yes Plan of care discussed with patient/family: Yes
[2020-07-22 10:30] LABS: Basophils % (Auto) 0.2 % (0.0-1.8); Eosinophils # (Auto) 0.1 K/mm3 (0.0-0.4); Eosinophils % (Auto) 0.4 % (0.0-4.3); Hematocrit 41.4 % (30.3-42.9); Hemoglobin 13.9 gm/dl (10.1-14.3); Lymphocytes # (Auto) 2.1 K/mm3 (1.2-5.4); Lymphocytes % (Auto) 15.1 % (13.4-35.0); Mean Corpuscular HGB Conc 34 % (30-34); Mean Corpuscular Volume 93 fl (79-97); Monocytes # (Auto) 1.3 K/mm3 (0.0-0.8); Monocytes % (Auto) 9.1 % (0.0-7.3); Platelet Count 191 K/mm3 (140-440); Red Blood Count 4.46 M/mm3 (3.65-5.03); Red Cell Distribution Width 12.8 % (13.2-15.2)
[2020-07-22 10:50] LABS: Alanine Aminotransferase 15 units/L (7-56); Albumin 4.3 g/dL (3.9-5); Blood Urea Nitrogen 9 mg/dL (7-17); Calcium 9.3 mg/dL (8.4-10.2); Hemolysis Index 9
[2020-07-22 10:51] LABS: BUN/Creatinine Ratio 15
[2020-07-22 10:52] LABS: Chol/HDL Ratio 2.41 %
--- NOTE | 2020-07-22 11:37 | Consultation ---
History of Present Illness Consult date: 07/22/20 - History of present illness History of present illness: 29 yo o/w healthy female with a one month h/o a progressively enlarging and tender left buttock abscess. No h/o fever, chills, drainage or DM. Past History Past Surgical History: Social history: lives with family, full code. denies: smoking, alcohol abuse, prescription drug abuse, IV drug use Family history: no significant family history Medications and Allergies Allergies Allergy/AdvReac Type Severity Reaction Status Date / Time No Known Allergies Allergy Verified 08/15/19 01:22 Home Medications Medication Instructions Recorded Confirmed Last Taken Type Ferrous Sulfate [Feosol 325 MG tab] 325 mg PO BID #30 tablet 08/15/19 Unknown Rx Ibuprofen [Motrin] 600 mg PO Q8H PRN #30 tablet 08/15/19 Unknown Rx oxyCODONE /ACETAMINOPHEN [Percocet 1 tab PO Q6HR PRN #30 tablet 08/15/19 Unknown Rx 5/325] oxyCODONE /ACETAMINOPHEN [Percocet 1 tab PO Q6HR PRN #30 tablet 08/17/19 Unknown Rx 5/325] Active Meds: Active Medications Acetaminophen (Acetaminophen 325 Mg Tab) 650 mg PO Q4H PRN PRN Reason: Pain MILD(1-3)/Fever >100.5/STEPHENS Al Hydrox/Mg Hydrox/Simethicone (Alum-Mag Hydroxide-Simethicone [phone]/5ml Oral Liqd 30 Ml) 30 ml PO Q4H PRN PRN Reason: Indigestion Albuterol (Albuterol 2.5 Mg/3 Ml Nebu) 2.5 mg IH Q3H PRN PRN Reason: Shortness Of Breath Dextrose (Dextrose 50% In Water (25gm) 50 Ml Syringe) 50 ml IV Q30MIN PRN; Protocol PRN Reason: Hypoglycemia Ferrous Sulfate (Ferrous Sulfate 325 Mg Tab) 325 mg PO BID BENJY Heparin Sodium (Porcine) (Heparin 5,000 Unit/1 Ml Vial) 5,000 unit SUB-Q PREOP NR Piperacillin Sod/Tazobactam Sod (Zosyn/Ns 4.5gm/100ml) 4.5 gm in 100 mls @ 200 mls/hr IV Q8H BENJY; Protocol Morphine Sulfate (Morphine 2 Mg/1 Ml Inj) 2 mg IV Q4H PRN PRN Reason: Pain, Moderate (4-6) Ondansetron HCl (Ondansetron 4 Mg/2 Ml Inj) 4 mg IV Q8H PRN PRN Reason: Nausea And Vomiting Oxycodone/Acetaminophen (Oxycodone /Acetaminophen 5-325mg Tab) 1 tab PO Q6H PRN PRN Reason: MODERATE PAIN (4-7) Sodium Chloride (Sodium Chloride 0.9% 10 Ml Flush Syringe) 10 ml IV BID BENJY Sodium Chloride (Sodium Chloride 0.9% 10 Ml Flush Syringe) 10 ml IV PRN PRN PRN Reason: LINE FLUSH Review of Systems All systems: negative (none) Exam Vital Signs Temp Pulse Resp BP Pulse Ox 98.2 F 108 H 20 105/73 98 07/22/20 08:00 07/22/20 08:00 07/22/20 08:00 07/22/20 08:00 07/22/20 08:00 - General physical appearance Positive: well developed, well nourished, no distress - Eyes Positive: PERRL, normal occular movement - ENT Positive: normal pinna, normal nares, normal mucosa, no hearing loss, no congestion - Neck Positive: no masses, no bruits, trachea midline, no venous distension - Respiratory Positive: normal expansion, normal respiratory effort, clear to auscultation - Cardiovascular Rhythm: regular Heart Sounds: Present: S1 & S2. Absent: rub, click - Extremities Extremities: no ischemia, pulses symmetrical, No edema - Breasts Breasts: normal, no mass, no skin changes - Abdomen Abdomen: Present: soft, bowel sounds normal. Absent: tender, distended Hernia: none - Genitourinary Male Genitourinary: normal Female Genitourinary: normal - Integumentary no rash, no growths, no abnormal pigmentation, other (10 cm tender, indurated area of the left medial buttock c/w an abscess. There is cellulitis of the overlying skin.) - Neurologic Neurologic: alert and oriented to time, place and person, motor strength and sensation are grossly intact - Musculoskeletal normal gait, normal posture - Psychiatric Psychiatric: appropriate mood/affect, intact judgment & insight Results - Labs 07/22/20 09:42 07/22/20 09:42 Abnormal lab results 07/22/20 07/22/20 07/22/20 Range/Units 09:42 09:42 10:05 WBC 13.8 H (4.5-11.0) K/mm3 RDW 12.8 L (13.2-15.2) % Shannon % (Auto) 9.1 H (0.0-7.3) % Shannon # (Auto) 1.3 H (0.0-0.8) K/mm3 Seg Neutrophils % 75.2 H (40.0-70.0) % Seg Neutrophils # 10.4 H (1.8-7.7) K/mm3 Sodium 135 L (137-145) mmol/L HDL Cholesterol 63 H (40-59) mg/dL Diabetes panel 07/22/20 07/22/20 07/22/20 Range/Units 09:42 09:42 10:05 Sodium 135 L (137-145) mmol/L Potassium 4.1 (3.6-5.0) mmol/L Chloride 100.3 (98-107) mmol/L Carbon Dioxide 27 D (22-30) mmol/L BUN 9 (7-17) mg/dL Creatinine 0.6 (0.6-1.2) mg/dL Glucose 96 (65-100) mg/dL Hemoglobin A1c 5.3 (4-6) % Calcium 9.3 (8.4-10.2) mg/dL AST 14 (5-40) units/L ALT 15 (7-56) units/L Alkaline Phosphatase 71 (35-129) units/L Total Protein 7.5 (6.3-8.2) g/dL Albumin 4.3 (3.9-5) g/dL Triglycerides 83 (2-149) mg/dL HDL Cholesterol 63 H (40-59) mg/dL Calcium panel 07/22/20 Range/Units 09:42 Calcium 9.3 (8.4-10.2) mg/dL Albumin 4.3 (3.9-5) g/dL Pituitary panel 07/22/20 Range/Units 09:42 Sodium 135 L (137-145) mmol/L Potassium 4.1 (3.6-5.0) mmol/L Chloride 100.3 (98-107) mmol/L Carbon Dioxide 27 D (22-30) mmol/L BUN 9 (7-17) mg/dL Creatinine 0.6 (0.6-1.2) mg/dL Glucose 96 (65-100) mg/dL Calcium 9.3 (8.4-10.2) mg/dL Adrenal panel 07/22/20 Range/Units 09:42 Sodium 135 L (137-145) mmol/L Potassium 4.1 (3.6-5.0) mmol/L Chloride 100.3 (98-107) mmol/L Carbon Dioxide 27 D (22-30) mmol/L BUN 9 (7-17) mg/dL Creatinine 0.6 (0.6-1.2) mg/dL Glucose 96 (65-100) mg/dL Calcium 9.3 (8.4-10.2) mg/dL Total Bilirubin 0.50 (0.1-1.2) mg/dL AST 14 (5-40) units/L ALT 15 (7-56) units/L Alkaline Phosphatase 71 (35-129) units/L Total Protein 7.5 (6.3-8.2) g/dL Albumin 4.3 (3.9-5) g/dL Assessment and Plan - Patient Problems (1) Left buttock abscess Current Visit: Yes Status: Acute Plan to address problem: 1) IV Zosyn 2) To OR for I&D 3) 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 We will try to make this happen as long as her pain is adequately controlled.
[2020-07-22] MEDS ORDERED: GLYCOPYRROLATE 0.4 MG/2 ML INJ ONE (11:41)
[2020-07-22] MEDS ORDERED: LIDOCAINE PF 100 MG/5 ML (CARDIAC SYRINGE) IV ONE (11:41)
[2020-07-22] MEDS ORDERED: ePHEDrine SULFATE 50 MG/1 ML INJ ONE (11:42)
[2020-07-22] MEDS ORDERED: fentaNYL 100 MCG/2 ML INJ ONE (11:43)
[2020-07-22] MEDS ORDERED: ONDANSETRON 4 MG/2 ML INJ ONE (11:43)
[2020-07-22] MEDS ORDERED: SUCCINYLCHOLINE CHLORIDE 200 MG/10 ML INJ MDV ONE (11:43)
[2020-07-22] MEDS ORDERED: propofoL 200 MG/20 ML VIAL IV ONE (11:43)
[2020-07-22] MEDS ORDERED: MIDAZOLAM 2 MG/2 ML INJ ONE (11:54)
--- NOTE | 2020-07-22 11:59 | Consultation ---
History of Present Illness - Reason for Consult Consult date: 07/22/20 - History of Present Illness 29-year-old female past medical history 2x sections the hospital complaining of buttock pain for the past 1 month. He denies any known trauma or insect bites to the area. Conservative measures were not successful in relieving the pain or swelling. Afebrile since admission, tachycardic. White count 13.8. No cultures available for review. Currently on Zosyn. She is pending I&D of the abscess. Review of Systems: Bold if positive, otherwise negative General: fevers, chills, rigors HEENT: visual disturbance, diplopia, eye pain Respiratory: cough, sputum, hemoptysis, shortness of breath Cardiovascular: chest pain, syncope Gastrointestinal: nausea, vomiting, diarrhea, abdominal pain Genitourinary: dysuria, hematuria, flank pain Musculoskeletal: neck pain, back pain, joint pain, edema Neurologic: headaches, seizures Hematologic: easy bruising or bleeding Endocrine: night sweats, acute weight loss Skin: rash, jaundice, redness Psychiatric: suicidal, homicidal ideation Past History Past Medical History: other Past Surgical History: Social history: lives with family, full code. denies: smoking, alcohol abuse, prescription drug abuse, IV drug use Family history: no significant family history Medications and Allergies Allergies Allergy/AdvReac Type Severity Reaction Status Date / Time No Known Allergies Allergy Verified 08/15/19 01:22 Home Medications Medication Instructions Recorded Confirmed Last Taken Type Ferrous Sulfate [Feosol 325 MG tab] 325 mg PO BID #30 tablet 08/15/19 Unknown Rx Ibuprofen [Motrin] 600 mg PO Q8H PRN #30 tablet 08/15/19 Unknown Rx oxyCODONE /ACETAMINOPHEN [Percocet 1 tab PO Q6HR PRN #30 tablet 08/15/19 Unknown Rx 5/325] oxyCODONE /ACETAMINOPHEN [Percocet 1 tab PO Q6HR PRN #30 tablet 08/17/19 Unknown Rx 5/325] Active Meds: Active Medications Acetaminophen (Acetaminophen 325 Mg Tab) 650 mg PO Q4H PRN PRN Reason: Pain MILD(1-3)/Fever >100.5/STEPHENS Al Hydrox/Mg Hydrox/Simethicone (Alum-Mag Hydroxide-Simethicone [phone]/5ml Oral Liqd 30 Ml) 30 ml PO Q4H PRN PRN Reason: Indigestion Albuterol (Albuterol 2.5 Mg/3 Ml Nebu) 2.5 mg IH Q3H PRN PRN Reason: Shortness Of Breath Dextrose (Dextrose 50% In Water (25gm) 50 Ml Syringe) 50 ml IV Q30MIN PRN; Protocol PRN Reason: Hypoglycemia Ferrous Sulfate (Ferrous Sulfate 325 Mg Tab) 325 mg PO BID BENJY Heparin Sodium (Porcine) (Heparin 5,000 Unit/1 Ml Vial) 5,000 unit SUB-Q PREOP NR Stop: 07/22/20 21:00 Piperacillin Sod/Tazobactam Sod (Zosyn/Ns 4.5gm/100ml) 4.5 gm in 100 mls @ 200 mls/hr IV Q8H BENJY; Protocol Morphine Sulfate (Morphine 2 Mg/1 Ml Inj) 2 mg IV Q4H PRN PRN Reason: Pain, Moderate (4-6) Ondansetron HCl (Ondansetron 4 Mg/2 Ml Inj) 4 mg IV Q8H PRN PRN Reason: Nausea And Vomiting Oxycodone/Acetaminophen (Oxycodone /Acetaminophen 5-325mg Tab) 1 tab PO Q6H PRN PRN Reason: MODERATE PAIN (4-7) Sodium Chloride (Sodium Chloride 0.9% 10 Ml Flush Syringe) 10 ml IV BID BENJY Sodium Chloride (Sodium Chloride 0.9% 10 Ml Flush Syringe) 10 ml IV PRN PRN PRN Reason: LINE FLUSH Physical Examination - Physical Exam Narrative exam: Physical Exam: Constitutional: Alert, cooperative. No acute distress Head, Ears, Nose: Normocephalic, atraumatic. External ears, nose normal Eyes: Conjunctivae/corneas clear. No icterus. No ptosis. Neck: Supple, no meningeal signs Oral: dentition fair, no thrush Cardiovascular: S1, S2 normal. Respiratory: Good air entry, clear to auscultation bilaterally GI: Soft, non-tender; bowel sounds normal. No peritoneal signs. Musculoskeletal: Left buttock abscess Skin: No rash or abscess Hem/Lymphatic: No palpable cervical or supraclavicular nodes. No lymphangitis Psych: Mood ok. Affect normal Neurological: Awake, alert, oriented. No gross abnormality - Constitutional Vitals: Vital Signs Temp Pulse Resp BP Pulse Ox 98.2 F 108 H 20 105/73 98 07/22/20 08:00 07/22/20 08:00 07/22/20 08:00 07/22/20 08:00 07/22/20 08:00 Temperature -Last 24 Hours Temperature 98.2 F Results - Labs CBC & Chem 7: 07/22/20 09:42 07/22/20 09:42 Labs: Abnormal lab results 07/22/20 07/22/20 07/22/20 Range/Units 09:42 09:42 10:05 WBC 13.8 H (4.5-11.0) K/mm3 RDW 12.8 L (13.2-15.2) % Crane % (Auto) 9.1 H (0.0-7.3) % Crane # (Auto) 1.3 H (0.0-0.8) K/mm3 Seg Neutrophils % 75.2 H (40.0-70.0) % Seg Neutrophils # 10.4 H (1.8-7.7) K/mm3 Sodium 135 L (137-145) mmol/L HDL Cholesterol 63 H (40-59) mg/dL Assessment and Plan Cultures: None A/P: 29-year-old female no past medical history admitted with left buttock abscess #Left buttock abscess: Pending I&D by surgery. Patient notes that she wishes to be discharged immediately after procedure, would presume she would leave AMA if not discharged. As such would obtain cultures in the surgery, but discharged with empiric Bactrim for 5 days. Recs: -Can discharge after the drainage with Bactrim DS every 12 hours to complete 5 days -Follow-up in ID clinic via telemedicine if symptoms fail to resolve Dr. Ray taking over tomorrow. Thank you for the consult, we will sign off. Please call with questions. Blanche Carlos MD [facility] ([facility] O: [phone] F: [phone]
[2020-07-22] MEDS ORDERED: HEPARIN 5,000 UNIT/1 ML VIAL SUB-Q NR (12:00)
[2020-07-22] MEDS ORDERED: KETAMINE/STERILE WATER 50 MG/ML SYRINGE ONE (12:29)
[2020-07-22] MEDS ORDERED: BUPIVACAINE-EPINEPHRINE/PF 0.5%-1:200,000 (30 ML) VIAL INFILTRATI ONE (12:38)
[2020-07-22] MEDS ORDERED: ceFAZolin 1 GM VIAL ONE (12:48)
--- NOTE | 2020-07-22 12:59 | Procedure Note ---
Date of procedure: 07/22/20 Pre-op diagnosis: Left rectal abscess Post-op diagnosis: same Procedure: I&D of left rectal abscess Pt was placed prone on the OR table. MAC anesthesia was administered. Buttocks were taped apart. Skin and SQ tissue at the proposed incision were infiltrated with 7 ml of 0.5% Marcaine with epinephrine. FNA was performed with an 18 gauge needle resulting in aspiration of 5 ml of mucopurulent fluid. This was sent for C&S. An incision was made over the abscess cavity with immediate drainage of a large amount of pus. Wound was aspirated. Hemostasis was obtained with the Bovie. Wound was irrigated with warm saline. Wound was packed open with a dilute Betadine moistened Kerlix roll followed by dry 4 X 4's and Medipore tape. Pt tolerated the procedure well and was taken to PACU in stable condition. Anesthesia: MAC Surgeon: VITA SU Estimated blood loss: minimal Pathology: list (C&S) Specimen disposition: to lab Condition: stable Disposition: PACU
[2020-07-22] MEDS ORDERED: PIPERACIL/TAZOBACTA 4.5/NS 100 4.5 GM/100 ML VIAL IV SCH (18:00)
[2020-07-22] MEDS ORDERED: FERROUS SULFATE 325 MG TAB PO SCH (22:00)
--- NOTE | 2020-07-23 07:42 | Discharge Summary ---
Providers - Providers Date of Admission: 07/22/20 Date of discharge: 07/22/20 Attending physician: NICK FARR 07/22/20 10:03 Consult to Physician [CONS] Routine Comment: Consulting Provider: VITA SU Physician Instructions: Reason For Exam: abscess 07/22/20 10:11 Consult to Physician [CONS] Routine Comment: Consulting Provider: THONG ALCANTARA Physician Instructions: Reason For Exam: gluteal abscess Primary care physician: [facility] Hospitalization Reason for admission: gluteal abscess Condition: Stable Hospital course: Patient is a 29-year-old female with past medical history of 2 previous C- section presents to the emergency room complaining of left buttocks pain x1 month. She denies any falls or known injuries or any insect bite. She denies any past medical history. She has been using erke-ykp-dpdksoo medicine and also warm soaks with no relief. She denies fever nausea vomiting. Patient appears uncomfortable states she is unable to sit on her buttocks due to the pain She initially was admitted in the hospital yesterday but had to leave due to childcare services. She returns today with complaint of the same and is planned for surgery and will be requested to admit the patient Gluteal abscess SIRS secondary to gluteal abscess with no organ dysfunction patient left AMA, I was not notified, patient possibly left after the surgery. I am unsure if she got the recommended antibiotics from ID. Disposition: DC- TO HOME OR SELFCARE Core Measure Documentation - Palliative Care Palliative Care/ Comfort Measures: Not Applicable - Core Measures Any of the following diagnoses?: none Exam - Constitutional Vitals: Temp Pulse Resp BP Pulse Ox 98.2 F 108 H 20 105/73 98 07/22/20 08:00 07/22/20 08:00 07/22/20 08:00 07/22/20 08:00 07/22/20 08:00 Plan Follow up with: PRIMARY CAREMD [Primary Care Provider] - 3-5 Days Prescriptions: cephALEXin [Keflex] 500 mg PO Q6HR 7 Days #28 capsule oxyCODONE /ACETAMINOPHEN [Percocet 5/325] 1 tab PO Q4HR PRN #40 tab PRN Reason: Pain, Moderate (4-6)
== END 2020-07-22 12:24 | disposition home or self-care (01) ==
LOC: ED 07:12 → UNDOADMOB 10:28 → 3B-SURG 10:28 → INTOOBSV 10:28 → 3A 12:12 → 3B-SURG 12:12 → EDSTATUS 12:15 → ED 12:23
PROVIDERS: ATTEND Emergency Medicine
DX: K61.1 Rectal abscess (principal); L02.31 Cutaneous abscess of buttock; F17.210 Nicotine dependence, cigarettes, uncomplicated; Z79.899 Other long term (current) drug therapy; Z98.891 History of uterine scar from previous surgery; Z80.8 Family history of malignant neoplasm of other organs or systems; Z98.890 Other specified postprocedural states; Z82.49 Family history of ischemic heart disease and other diseases of the circulatory system
CPT/HCPCS: 36415; 80053; 80061; 83036; 84703; 85025; 99285; J0330; J0690; J2001; J2250; J2405; J2543; J2704; J3010; J3490; J7030

== ENCOUNTER 2020-07-25 08:20 | Outpatient (CLI) | payer MEDICAID ==
[2020-07-25] MEDS ORDERED: LIDOCAINE (4%) 40 MG/ML TOPICAL SOLN 50 ML BOTTLE TP ONE (08:28)
== END 2020-07-25 08:21 | disposition home or self-care (01) ==
LOC: WOUND 08:20
PROVIDERS: ATTEND Surgery
DX: L02.31 Cutaneous abscess of buttock (principal); S31.829A Unspecified open wound of left buttock, initial encounter; F17.210 Nicotine dependence, cigarettes, uncomplicated; X58.XXXA Exposure to other specified factors, initial encounter; Y93.89 Activity, other specified; Y92.89 Other specified places as the place of occurrence of the external cause; Y99.8 Other external cause status
CPT/HCPCS: 99205; 99215; G0463

== ENCOUNTER 2022-01-05 16:57 | Inpatient (IN) | payer MEDICAID ==
[2022-01-05] MEDS ORDERED: METOCLOPRAMIDE 10 MG/2 ML INJ IV SCH (18:48)
[2022-01-05] MEDS ORDERED: FAMOTIDINE 20 MG/2 ML INJ IV SCH (18:48)
[2022-01-05] MEDS ORDERED: BICITRA ORAL LIQD 30ML PO SCH (18:48)
[2022-01-05] MEDS ORDERED: ceFAZolin/Water 2 GM/20 ML 2 GM/20 ML SYRINGE IV NR (19:00)
[2022-01-05] MEDS ORDERED: OXYTOCIN DRIP 30 UNITS/500 ML BAG IV SCH ×2 (19:00→22:00)
--- NOTE | 2022-01-05 19:06 | Anesthesia Consultation ---
Anesthesia Consult and Med Hx - Airway Anesthetic Teeth Evaluation: Good ROM Head & Neck: Adequate Mental/Hyoid Distance: Adequate Mallampati Class: Class I Intubation Access Assessment: Probably Good - Pulmonary Exam CTA: Yes - Cardiac Exam Cardiac Exam: RRR - Pre-Operative Health Status ASA Pre-Surgery Classification: ASA2 Proposed Anesthetic Plan: Spinal - Pulmonary Hx Smoking: Yes Hx Asthma: No COPD: No Hx Pneumonia: No - Cardiovascular System Hx Hypertension: No - Central Nervous System Hx Seizures: No Hx Psychiatric Problems: No - Endocrine Hx Renal Disease: No Hx End Stage Renal Disease: No Hx Hypothyroidism: No Hx Hyperthyroidism: No - Hematic Hx Anemia: No Hx Sickle Cell Disease: No - Other Systems Hx Alcohol Use: No
[2022-01-05 19:34] LABS: Basophils % (Auto) 0.2 % (0.0-1.8); Eosinophils % (Auto) 0.5 % (0.0-4.3); Hematocrit 38.3 % (30.3-42.9); Hemoglobin 13.1 gm/dl (10.1-14.3); Lymphocytes # (Auto) 2.2 K/mm3 (1.2-5.4); Lymphocytes % (Auto) 21.7 % (13.4-35.0); Mean Corpuscular HGB Conc 34 % (30-34); Mean Corpuscular Volume 94 fl (79-97); Monocytes # (Auto) 0.7 K/mm3 (0.0-0.8); Platelet Count 195 K/mm3 (140-440); Red Blood Count 4.06 M/mm3 (3.65-5.03); Red Cell Distribution Width 12.9 % (13.2-15.2)
[2022-01-05] MEDS ORDERED: LACTATED RINGERS 1,000 ML IV SCH (20:00)
[2022-01-05] MEDS ORDERED: dexAMETHasone 20 MG/5 ML VIAL ONE (20:31)
[2022-01-05] MEDS ORDERED: PHENYLEPHRINE/NS 1,000 MCG/10 ML SYRINGE (OR USE) IV ONE (20:31)
[2022-01-05] MEDS ORDERED: ONDANSETRON 4 MG/2 ML INJ ONE (20:31)
[2022-01-05] MEDS ORDERED: ePHEDrine SULFATE 50 MG/1 ML INJ ONE (20:31)
[2022-01-05] MEDS ORDERED: BUPIVACAINE/PF (0.25%) 2.5 MG/ML 30 ML VIAL INFILTRATI ONE (20:32)
[2022-01-05] MEDS ORDERED: KETOROLAC 30 MG/1 ML INJ ONE (20:32)
[2022-01-05] MEDS ORDERED: fentaNYL 100 MCG/2 ML INJ ONE (20:33)
[2022-01-05] MEDS ORDERED: NALOXONE 0.4 MG/1 ML INJ IV PRN ×2 (20:39→21:09)
[2022-01-05] MEDS ORDERED: MORPHINE 4 MG/1 ML INJ IV PRN ×2 (20:39→21:10)
[2022-01-05] MEDS ORDERED: PROMETHAZINE 25 MG TAB PO PRN (20:39)
[2022-01-05] MEDS ORDERED: HYDROmorphone 1 MG/1 ML INJ IV PRN (20:39)
[2022-01-05] MEDS ORDERED: ONDANSETRON 4 MG/2 ML INJ IV PRN (20:39)
[2022-01-05] MEDS ORDERED: PROMETHAZINE 25 MG RECT SUPP PR PRN (20:39)
[2022-01-05 20:41] LABS: Amphetamine Screen,Urine Negative; Benzodiazepines Screen,Urine Negative; Cannabinoid Screen,Urine Negative; Cocaine Screen,Urine Negative; Methadone Screen,Urine Negative; Opiate Screen,Urine Negative
[2022-01-05 20:46] LABS: Bilirubin,Urine NEG (Negative); Blood,Urine MOD (Negative); Color,Urine Yellow (Yellow); Mucus,Urine 2+ /HPF; Protein,Urine <15 mg/dL mg/dL (Negative); Urobilinogen,Urine < 2.0 mg/dL (<2.0)
[2022-01-05] MEDS ORDERED: SODIUM CHLORIDE 0.9% IRR 1,500 ML BOTTLE IR ONE (21:03)
[2022-01-05] MEDS ORDERED: WATER FOR IRRIG STERILE 1,500 ML BOTTLE IR ONE (21:03)
[2022-01-05] MEDS ORDERED: ceFAZolin 1 GM VIAL IV ONE (21:03)
[2022-01-05] MEDS ORDERED: LACTATED RINGERS 1,000 ML ONE (21:05)
--- NOTE | 2022-01-05 21:05 | History and Physical Report ---
History of Present Illness Date of examination: 01/05/22 Date of admission: 01/05/2022 Chief complaint: Leakage of fluid History of present illness: 31-year-old -0-0-2 at 38+4 weeks who presents with gross rupture membranes. The patient has a history of a previous delivery. He has undesired fertility Past History Past Medical History: other (Depression) Past Surgical History: section Social history: - Obstetrical History Expected Date of Delivery: 01/15/22 Actual Gestation: 38 Week(s) 4 Day(s) : 3 Para: 2 Hx # Term Pregnancies: 2 Number of Pregnancies: 0 Spontaneous Abortions: 0 Induced : 0 Number of Living Children: 2 Medications and Allergies Allergies Allergy/AdvReac Type Severity Reaction Status Date / Time No Known Allergies Allergy Verified 01/05/22 20:00 Home Medications Medication Instructions Recorded Confirmed Last Taken Type Ferrous Sulfate [Feosol 325 MG tab] 325 mg PO BID #30 tablet 08/15/19 Unknown Rx Ibuprofen [Motrin] 600 mg PO Q8H PRN #30 tablet 08/15/19 Unknown Rx oxyCODONE /ACETAMINOPHEN [Percocet 1 tab PO Q6HR PRN #30 tablet 08/15/19 Unknown Rx 5/325] oxyCODONE /ACETAMINOPHEN [Percocet 1 tab PO Q6HR PRN #30 tablet 08/17/19 Unknown Rx 5/325] cephALEXin [Keflex] 500 mg PO Q6HR 7 Days #28 capsule 07/22/20 Unknown Rx oxyCODONE /ACETAMINOPHEN [Percocet 1 tab PO Q4HR PRN #40 tab 07/22/20 Unknown Rx 5/325] Active Meds: Active Medications Citric Acid/Sodium Citrate (Bicitra Oral Liqd 30ml) 30 ml PO ONCE BENJY Last Admin: 01/05/22 20:38 Dose: 30 ml Famotidine (Famotidine 20 Mg/2 Ml Inj) 20 mg IV ONCE BENJY Last Admin: 01/05/22 20:39 Dose: 20 mg Hydromorphone HCl (Hydromorphone 1 Mg/1 Ml Inj) 0.5 mg IV Q5M PRN PRN Reason: BREAK Stop: 01/06/22 20:38 Lactated Ringer's (Lactated Ringers) 1,000 mls @ 2,250 mls/hr IV PREOP BENJY Stop: 01/06/22 20:27 Oxytocin/Sodium Chloride (Pitocin/Ns 30 Unit/500ml) 30 units in 500 mls @ 0 mls/hr IV TITR BENJY; Protocol Cefazolin Sodium (Ancef/Sterile Water 2 Gm/20 Ml) 2 gm in 20 mls @ 80 mls/hr IV PREOP NR; Protocol Stop: 01/06/22 18:59 Metoclopramide HCl (Metoclopramide 10 Mg/2 Ml Inj) 10 mg IV ONCE BENJY Last Admin: 01/05/22 20:38 Dose: 10 mg Morphine Sulfate (Morphine 4 Mg/1 Ml Inj) 2.5 mg IV Q15M PRN PRN Reason: BREAK Stop: 01/06/22 20:38 Naloxone HCl (Naloxone 0.4 Mg/1 Ml Inj) 0.2 mg IV Q2MIN PRN PRN Reason: Res Rate </= 8 or 02 SAT < 92% Ondansetron HCl (Ondansetron 4 Mg/2 Ml Inj) 4 mg IV Q8H PRN PRN Reason: Nausea And Vomiting Promethazine HCl (Promethazine 25 Mg Tab) 25 mg PO Q6H PRN PRN Reason: Nausea And Vomiting Promethazine HCl (Promethazine 25 Mg Rect Supp) 25 mg NC Q6H PRN PRN Reason: Nausea And Vomiting Sodium Chloride (Sodium Chloride 0.9% 10 Ml Flush Syringe) 10 ml IV PRN BENJY Review of Systems All systems: negative Genitourinary: leakage of fluid, contractions - Vital Signs Vital signs: Vital Signs Pulse Pulse Ox 86 91 01/05/22 17:32 01/05/22 17:32 Temp Pulse Resp BP Pulse Ox 98 F 126 H 15 115/71 98 01/05/22 17:42 01/05/22 20:58 01/05/22 17:42 01/05/22 19:46 01/05/22 20:58 - Physical Exam Breasts: Positive: deferred Cardiovascular: Regular rate Lungs: Positive: Clear to auscultation Results Result Diagrams: 01/05/22 Unknown Abnormal lab results 01/05/22 01/05/22 01/05/22 Range/Units Unknown Unknown Unknown RDW 12.9 L (13.2-15.2) % Seg Neutrophils % 70.6 H (40.0-70.0) % Urine WBC (Auto) 33.0 H (0.0-6.0) /HPF U Epithel Cells (Auto) 22.0 H (0-13.0) /HPF Membranes Rupture Positive A (Negative) All other labs normal. Assessment and Plan - Patient Problems (1) Previous delivery affecting Current Visit: Yes Status: Acute (2) Spontaneous rupture of amniotic membranes Current Visit: Yes Status: Acute
--- NOTE | 2022-01-05 21:08 | Procedure Note ---
OB Delivery Note - Delivery Date of Delivery: 01/05/22 Surgeon: REHAN FELIPE Estimated blood loss: other (qbl 424ml) - Section Preop diagnosis: repeat Postop diagnosis: same section procedure: section, repeat low transverse, bilateral tubal ligation Disposition: PACU Complications: none - A at 1 minute: 8 at 5 minutes: 9 (Weight 6 pounds 1 ounce) Infant Gender: Male (Weight 6 pounds 1 ounce)
[2022-01-05] MEDS ORDERED: WITCH HAZEL/ GLYCERIN PAD TP PRN (21:09)
[2022-01-05] MEDS ORDERED: LANOLIN/ZINC/DIMETHICONE (LANSINOH) 7 GM TP PRN (21:09)
--- NOTE | 2022-01-05 21:09 | Operative Report ---
Operative Report Operative Report: Date of surgery: January 05, 2022 Preoperative diagnosis: at 38+4 weeks; previous delivery; s pontaneous rupture membranes; unwanted fertility Postoperative diagnosis: Same as above Procedure: Repeat low transverse delivery and bilateral tubal ligation via [place] method Surgeon: Lizabeth Russo M.D. Anesthesia: Regional Estimated blood loss:Qbl 424ml Urine output: 150 mL IV fluids: 1600 mL Findings: Liveborn male infant with Apgars of 8 and 9 weight 6 pounds 1 ounce Indications: 31-year-old -0-0-2 at 38+4 weeks who presents in active labor with spontaneous rupture membranes. The patient has a history of 2 prior deliveries. Procedure: The patient was taken to the operating room and given regional anesthesia without complication. She was prepped and draped in a normal sterile fashion. A Pfannenstiel skin incision was made down to layer the fascia which was nicked in the midline extended laterally with the Bovie cautery. The superior aspect of the rectus fascia was grasped with [place] clamps x2 and the rectus muscles off sharply. This was done in inferior fashion as well. The rectus muscle midline and peritoneum entered bluntly. An Dmitry retractor was then inserted. A bladder blade was placed. The vesicouterine peritoneum was then entered sharply with Metzenbaum scissors. A bladder flap was created digitally. A low transverse uterine incision was then made and extended digitally. There was clear fluid upon entry into the uterine cavity. The head was delivered through the incision with fundal pressure. The cord was clamped and cut x2 and infant was passed off to pediatrics. The placenta was then manually extracted. The uterus was then exteriorized and cleared of clots and debris. The uterine incision was then closed in a running locked fashion with 0 Vicryl additional imbricating stitch was applied for 2 layer closure. The ampullary portion of the right fallopian tube Azeem. The mesosalpinx was transected with the Bovie cord on the contralateral side as well. The posterior cul-de-sac was then copiously irrigated. The uterus was replaced back into the abdomen and pelvis were the gutters were then irrigated. The Dmitry retractor was then removed. The peritoneum was then reapproximated with 3-0 Vicryl incorporating the rectus muscle. The fascia was then closed with 0 Vicryl in a running fashion. The skin was then reapproximated with 3-0 Monocryl on a Eliud needle subcuticular fashion. Steri-Strips to place across the incision and a Crede procedures performed at the end of the surgery. A pressure dressing was applied to the incision. The surgery productive of a liveborn default value with Apgars of 8 and 9 weight 6 pounds 1 ounce. The patient was taken to the recovery room in stable condition. All sponge laps and needle counts correct x2.
[2022-01-05 21:10] LABS: HCG,Quantitative 6254 mIU/mL (0-4); Hepatitis C Virus Antibody Non-Reactive (NonReactive)
[2022-01-05] MEDS ORDERED: MAGNESIUM HYDROXIDE (MOM) ORAL LIQD UDC PO PRN (21:10)
[2022-01-05] MEDS ORDERED: ACETAMINOPHEN 325 MG TAB PO PRN (21:10)
[2022-01-05] MEDS ORDERED: D5W/LACTATED RINGERS 1,000 ML IV SCH (22:00)
--- NOTE | 2022-01-05 22:33 | Progress Note ---
Spinal Anesthesia Block - Spinal Anesthesia Block Start Time: 21:11 Stop Time: 21:13 Performed by:: SARAH VELOZ Procedure: L3-4 space Identified, prep and drape NSF. local to skin, introducer, clear csf, neg heme, swirl noted. Jeffrey well, no complications, comfortable.
--- NOTE | 2022-01-05 22:37 | Progress Note ---
Regional Anesthesia Block - Regional Anesthesia Block Start Time: 22:08 Stop Time: 22:21 Performed By:: SARAH VELOZ Procedure: Sebastián TAP block. Ultrasound guided, image in chart. 20guage 4 inch echogenic needle. Prep NSF, aspirations negative, 25 ml 0.25% Bupi each side.
[2022-01-06] MEDS: KETOROLAC 30 MG/1 ML INJ IV PRN ×2 (01:43→08:04)
[2022-01-06 09:58] LABS: Hematocrit 33.5 % (30.3-42.9); Hemoglobin 11.3 gm/dl (10.1-14.3)
[2022-01-06] MEDS: oxyCODONE /ACETAMINOPHEN 5-325MG TAB PO PRN ×3 (10:56→20:36)
[2022-01-06] MEDS ORDERED: SIMETHICONE 80 MG CHEW TAB PO PRN (14:09)
[2022-01-06] MEDS: IBUPROFEN 600 MG TAB PO PRN ×2 (14:22→22:44)
--- NOTE | 2022-01-06 16:34 | Progress Note ---
Assessment and Plan - Patient Problems (1) Previous delivery affecting Current Visit: Yes Status: Acute Plan to address problem: Symptoms likely consistent with retained air in the peritoneal space however will continue to monitor closely Will consider a CT of chest and abdomen if symptoms persist. (2) Spontaneous rupture of amniotic membranes Current Visit: Yes Status: Acute Subjective - Subjective Date of service: 01/06/22 Interval history: The patient is experiencing some postoperative symptoms. She is currently tolerating diet and has been able to void and have a bowel movement without difficulty. She is currently complaining of right shoulder pain and also mild right upper quadrant discomfort. Patient reports passing flatus. She is ambulating without difficulty. Patient reports: appetite normal, voiding normally, pain poorly controlled : doing well Objective - Vital Signs Latest vital signs: Vital Signs Temp Pulse Resp BP BP Pulse Ox Pulse Ox 01/06/22 16:07 98.2 F 98 H 20 129/74 99 01/06/22 11:58 97.6 F 87 20 107/70 95 01/06/22 08:00 99 01/06/22 07:07 97.5 F L 81 20 101/54 98 01/06/22 04:00 98.4 F 73 16 109/54 98 01/06/22 00:35 98.4 F 73 22 122/68 98 98 01/05/22 23:47 98.1 F 01/05/22 23:31 97.7 F 67 16 128/65 99 01/05/22 23:25 62 17 130/61 98 01/05/22 23:21 63 16 122/56 99 01/05/22 23:17 80 17 127/57 99 01/05/22 23:11 84 17 121/64 99 01/05/22 22:56 70 17 129/69 99 01/05/22 20:58 126 H 98 01/05/22 20:53 133 H 96 01/05/22 20:48 99 H 98 01/05/22 20:43 98 H 98 01/05/22 20:38 99 H 98 01/05/22 20:33 90 98 01/05/22 20:28 81 98 01/05/22 20:23 82 97 01/05/22 20:18 89 97 01/05/22 20:13 85 99 01/05/22 20:08 86 97 01/05/22 20:03 79 99 01/05/22 19:58 84 98 01/05/22 19:55 98 01/05/22 19:53 83 99 01/05/22 19:46 77 115/71 01/05/22 18:37 90 97 01/05/22 18:32 90 98 01/05/22 18:27 81 98 01/05/22 18:22 85 98 01/05/22 18:17 81 98 01/05/22 18:12 100 H 98 01/05/22 18:07 81 97 01/05/22 18:02 98 H 98 01/05/22 17:57 85 98 01/05/22 17:52 82 97 01/05/22 17:47 89 98 01/05/22 17:43 86 113/66 01/05/22 17:42 98 F 94 H 15 113/66 96 01/05/22 17:37 95 H 98 01/05/22 17:32 85 97 Intake and Output 01/06/22 01/06/22 01/06/22 06:59 14:59 22:59 Intake Total 600 Output Total 1400 1020 Balance -1400 -420 Intake: Oral 600 Output: Urine 1400 1020 Indwelling Catheter 850 800 Uretheral (Baez) 450 Void 220 Other: Total, Intake Amount 240 Total, Output Amount 650 220 # Voids Void 1 # Bowel Movements 1 - Exam Incision: Present: dressed - Labs Labs: Abnormal lab results 01/05/22 01/05/22 01/05/22 Range/Units Unknown Unknown Unknown RDW 12.9 L (13.2-15.2) % Seg Neutrophils % 70.6 H (40.0-70.0) % HCG, Quant 6254 H (0-4) mIU/mL Urine WBC (Auto) (0.0-6.0) /HPF U Epithel Cells (Auto) (0-13.0) /HPF Membranes Rupture Positive A (Negative) 01/05/22 Range/Units Unknown RDW (13.2-15.2) % Seg Neutrophils % (40.0-70.0) % HCG, Quant (0-4) mIU/mL Urine WBC (Auto) 33.0 H (0.0-6.0) /HPF U Epithel Cells (Auto) 22.0 H (0-13.0) /HPF Membranes Rupture (Negative)
--- NOTE | 2022-01-07 07:50 | Progress Note ---
Assessment and Plan A: POD#2 s/p repeat and bilateral tubal ligation at term Right shoulder pain Suboptimal administration of pain medication P: Optimize pain medication regimen Closely monitor clinical status Subjective - Subjective Date of service: 01/07/22 Principal diagnosis: POD#2 s/p section at term, right shoulder pain Interval history: Pt reports shoulder pain much improved today but still present. Denies chest pain or dyspnea. Decreasing lochia. + flatus. Pt only received pain medication twice postoperatively. Patient reports: appetite normal, voiding normally, flatus, bowel movement (very small amount yesterday ), pain poorly controlled [place]: doing well Objective - Vital Signs Latest vital signs: Vital Signs Temp Pulse Resp BP BP Pulse Ox Pulse Ox 01/07/22 00:24 98.3 F 88 18 122/58 100 01/06/22 23:44 18 01/06/22 22:44 18 01/06/22 22:30 98.9 F 92 H 18 117/71 98 01/06/22 21:36 18 01/06/22 21:19 99 01/06/22 20:36 18 01/06/22 16:07 98.2 F 98 H 20 129/74 99 01/06/22 11:58 97.6 F 87 20 107/70 95 01/06/22 08:00 99 Intake and Output 01/06/22 01/07/22 01/07/22 22:59 06:59 14:59 Intake Total 840 480 Output Total 400 Balance 440 480 Intake: Oral 840 480 Output: Urine 400 Void 400 Other: Total, Intake Amount 480 480 Total, Output Amount 400 # Voids Void 2 1 - Exam Breasts: Present: deferred Abdomen: Present: soft, tenderness (right greater than left ). Absent: distention Extremities: Present: edema (trace) Incision: Present: dressed
[2022-01-07] MEDS: IBUPROFEN 600 MG TAB PO SCH ×2 (08:05→13:03)
--- NOTE | 2022-01-07 08:21 | Event Note ---
Date: 01/07/22 On-call physician contacted because patient request to speak with me. Patient reports that she needed to get home today in order to take care of her other children and feels that she can manage her pain control on an outpatient basis. Patient informed that her clinical presentation will continue to be observed this morning with the possibility of discharge later today
[2022-01-07] MEDS: oxyCODONE /ACETAMINOPHEN 5-325MG TAB PO PRN (09:27)
--- NOTE | 2022-01-07 12:49 | Discharge Summary ---
Providers - Providers Date of Admission: 01/05/22 21:09 Date of discharge: 01/07/22 Attending physician: REHNA FELIPE Primary care physician: REHAN FELIPE Hospitalization Reason for admission: rupture of membranes Delivery: Procedure: section, bilateral tubal ligation, repeat low transverse Procedure details: Please see operative report Episiotomy: none Laceration: none Incision: intact Discharge diagnosis: other [place] baby: male Hospital course: This patient was admitted for rupture of membranes at term and underwent repeat section and bilateral tubal ligation which she tolerated well. Her postoperative course was complicated by right shoulder pain and suboptimal pain control which resolved on postoperative day #2. Her patient request the patient was discharged on postoperative day #2 with instructions to follow-up in 2 weeks for an incision check. Condition at discharge: Stable Disposition: 01 HOME / SELF CARE / HOMELESS - Discharge Diagnoses (1) Term of male Status: Acute (2) Previous delivery affecting Status: Acute (3) Spontaneous rupture of amniotic membranes Status: Acute (4) delivery delivered Status: Acute Plan - Discharge Medications Prescriptions: Ibuprofen [Motrin] 800 mg PO Q8HR PRN #60 tablet PRN Reason: Pain , Severe (7-10) oxyCODONE /ACETAMINOPHEN [Percocet 5/325] 1 tab PO Q6HR PRN #30 tablet PRN Reason: Pain - Provider Discharge Summary Activity: routine, no sex for 6 weeks, no heavy lifting 4 weeks, no strenuous exercise Diet: routine Instructions: routine Additional instructions: [] Smoking cessation referral if applicable(refer to patient education folder for contact #) [] Refer to [facility] Booklet Call your doctor immediately for: * Fever > 100.5 * Heavy vaginal bleeding ( >1 pad per hour) * Severe persistent headache * Shortness of breath * Reddened, hot, painful area to leg or breast * Drainage or odor from incision. * Keep incision clean and dry at all times and follow doctor's instructions regarding bathing/showering - Follow up plan Follow up: REHAN FELIPE MD [Primary Care Provider] - 01/20/22 (Please call to schedule an incision check Please schedule your son's circumcision before he in one month old.)
[2022-01-07 13:36] VITALS: BP 110/60
== END 2022-01-07 14:00 | disposition home or self-care (01) | DRG 766 ==
LOC: TRG 16:57 → APU 16:59 → TRG 21:09 → OB 01-06 00:10
PROVIDERS: ADMIT Obstetrics & Gynecology; ATTEND Obstetrics & Gynecology
PROC: 10D00Z1 Extraction of Products of Conception, Low, Open Approach (ICD-10-PCS; principal; 2022-01-05)
PROC: 0UB70ZZ Excision of Bilateral Fallopian Tubes, Open Approach (ICD-10-PCS; 2022-01-05)
DX: O34.211 Maternal care for low transverse scar from previous cesarean delivery (principal); Z3A.38 38 weeks gestation of pregnancy; Z37.0 Single live birth; Z20.822 Contact with and (suspected) exposure to COVID-19; Z30.2 Encounter for sterilization
CPT/HCPCS: 36415; 80307; 81001; 84112; 84702; 85014; 85018; 85025; 86592; 86706; 86762; 86803; 86850; 86900; 86901; 87086; 87806; 99211; G0378; J3490; J7060; G0463; J0690; J1100; J1885; J2270; J2370; J2405; J2765; J3010; J7120; J7121; U0003